=== PATIENT | female | born 1990 | race Caucasian/White ===

== ENCOUNTER 2017-03-17 18:15 | Emergency (ER) | payer MEDICARE, OTHER ==
--- NOTE | 2017-03-17 18:42 | ER Document Report ---
ED Medical Screen (RME) - General Chief Complaint: Abdominal Pain Stated Complaint: ABDOMINAL PAIN Time Seen by Provider: 03/17/17 18:38 Mode of Arrival: Wheelchair Information source: Patient, Relative Notes: 26-year-old female presents with complaints of pelvic pain. Patient has had multiple visits for similar episodes in the past. Patient was diagnosed with ovarian cysts by Shraddha Puckett. Patient has had a "syncopal episode" while in [place], was immediately awoken with sternal rub and is stable I have greeted and performed a rapid initial assessment of this patient. A comprehensive ED assessment and evaluation of the patient, analysis of test results and completion of the medical decision making process will be conducted by additional ED providers. PHYSICAL EXAMINATION: GENERAL: Tearful HEAD: Atraumatic, normocephalic. EYES: Pupils equal round extraocular movements intact, conjunctiva are normal. ENT: Nares patent NECK: Normal range of motion LUNGS: No respiratory distress Musculoskeletal: Normal range of motion NEUROLOGICAL: Normal speech, normal gait. PSYCH: Anxious SKIN: Multiple old cuts on bilateral forearms TRAVEL OUTSIDE OF THE [place] IN LAST 30 DAYS: No - Related Data Allergies/Adverse Reactions: hydromorphone [From Dilaudid] Allergy (Verified 03/17/17 18:24) Past Medical History Renal/ Medical History: Denies: Hx Peritoneal Dialysis Physical Exam - Vital signs Vitals: Temp Pulse Resp BP Pulse Ox 98.3 F 83 16 120/68 98 03/17/17 18:22 03/17/17 18:22 03/17/17 18:22 03/17/17 18:22 03/17/17 18:22 Course - Vital Signs Vital signs: Temp Pulse Resp BP Pulse Ox 98.3 F 83 16 120/68 98 03/17/17 18:22 03/17/17 18:22 03/17/17 18:22 03/17/17 18:22 03/17/17 18:22
[2017-03-17] MEDS ORDERED: KETOROLAC TROMETHAMINE INJ/PF 30 MG/1 ML SDV IV ONE (18:45)
[2017-03-17 19:28] LABS: APPEARANCE,URINE SLIGHTLY-CLOUDY; BILIRUBIN,URINE NEGATIVE (NEGATIVE); GLUCOSE, URINE NEGATIVE (NEGATIVE); KETONES,URINE NEGATIVE (NEGATIVE); LEUKOCYTE ESTERASE,URINE NEGATIVE (NEGATIVE); NITRITE,URINE NEGATIVE (NEGATIVE); PROTEIN,URINE 30 mg/dL (NEGATIVE); URINE SPECIFIC GRAVITY 1.028; UROBILINOGEN,URINE NEGATIVE mg/dL (<2.0)
[2017-03-17] MEDS ORDERED: HALOPERIDOL LACTATE INJ 5 MG/1 ML VIAL IV ONE (19:28)
--- NOTE | 2017-03-17 19:52 | ER Document Report ---
ED General - General Chief Complaint: Abdominal Pain Stated Complaint: ABDOMINAL PAIN Time Seen by Provider: 03/17/17 18:38 Mode of Arrival: Wheelchair Notes: Patient is a 26-year-old female with a past medical history of depression, anxiety, self-injurious behavior, recurrent abdominal pain who presents with 1 month of left lower abdominal pain. Describes it as a constant daily stabbing pain to lower abdomen that is severe in nature and has become progressively worse since onset. She was seen at [facility] in the last several days, told she had a left ovarian cyst and was discharged home. Nothing improves or worsens her pain. States that she has had similar episodes in the past but not to this degree of severity. Does admit to frequent abdominal pain. She has not had any associated vaginal bleeding, vaginal discharge, diarrhea or vomiting. TRAVEL OUTSIDE OF THE [place] IN LAST 30 DAYS: No - Related Data Allergies/Adverse Reactions: hydromorphone [From Dilaudid] Allergy (Verified 03/17/17 18:24) Past Medical History - General Information source: Patient, Relative - Social History Smoking Status: Former Smoker Frequency of alcohol use: Occasional Drug Abuse: None Lives with: Spouse/Significant other Family History: Reviewed & Not Pertinent Renal/ Medical History: Denies: Hx Peritoneal Dialysis Psychiatric Medical History: Reports: Hx Depression Review of Systems - Review of Systems Notes: Constitutional: Negative for fever. HENT: Negative for sore throat. Eyes: Negative for visual changes. Cardiovascular: Negative for chest pain. Respiratory: Negative for shortness of breath. Gastrointestinal: Positive for abdominal pain Genitourinary: Negative for dysuria. Musculoskeletal: Negative for back pain. Skin: Negative for rash. Neurological: Negative for headaches, weakness or numbness. 10 point ROS negative except as marked above and in HPI. Physical Exam - Vital signs Vitals: Temp Pulse Resp BP Pulse Ox 98.3 F 83 16 120/68 98 03/17/17 18:22 03/17/17 18:22 03/17/17 18:22 03/17/17 18:22 03/17/17 18:22 Interpretation: Normal Notes: PHYSICAL EXAMINATION: GENERAL: Appears to be uncomfortable, tearful, highly anxious HEAD: Atraumatic, normocephalic. EYES: Pupils equal round and reactive to light, extraocular movements intact, sclera anicteric, conjunctiva are normal. ENT: nares patent, oropharynx clear without exudates. Moist mucous membranes. NECK: Normal range of motion, supple without lymphadenopathy LUNGS: Breath sounds clear to auscultation bilaterally and equal. No wheezes rales or rhonchi. HEART: Regular rate and rhythm without murmurs ABDOMEN: Soft, nontender on palpation of the abdomen during conversation, normoactive bowel sounds. No guarding, no rebound. No masses appreciated. EXTREMITIES: Normal range of motion, no pitting or edema. No cyanosis. NEUROLOGICAL: No focal neurological deficits. Moves all extremities spontaneously and on command. PSYCH: Tearful and anxious SKIN: Warm, Dry, normal turgor, no rashes or lesions noted. Course - Re-evaluation Re-evalutation: 03/17/17 19:33 Patient presents with 1 month of left adnexal tenderness, diagnosed with an ovarian cyst at [facility] earlier today who presents requesting that her left ovary be removed. Patient is hyperventilating, extremely anxious on assessment, stuttering speech due to crying. She has self-inflicted cutting wounds on her left forearm that are well-healed. Admits to an extensive history of depression and anxiety as well as frequent abdominal pain. Patient actually has no focal tenderness whatsoever when I am examining her abdomen while talking to her. No rebound or guarding. Her heart rate and blood pressure are within normal limits. Given the duration of her symptoms I have very low clinical suspicion for acute ovarian torsion, tubo-ovarian abscess, and her history and examination are not consistent with an acute appendicitis, pyelonephritis, nephrolithiasis acute pancreatitis or biliary pathology. Will obtain basic laboratories, transvaginal ultrasound, provide IV Toradol and a small dose of IV haloperidol and reassess 03/17/17 21:07 Transvaginal ultrasound does not demonstrate any evidence of a large ovarian mass on either side, no evidence of torsion. At this time will discharge with return precautions and follow-up recommendations. Verbal discharge instructions given a the bedside and opportunity for questions given. Medication warnings reviewed. Patient is in agreement with this plan and has verbalized understanding of return precautions and the need for primary care follow-up in the next 24-72 hours. - Vital Signs Vital signs: Temp Pulse Resp BP Pulse Ox 98.3 F 83 18 110/80 100 03/17/17 18:22 03/17/17 18:22 03/17/17 20:01 03/17/17 20:01 03/17/17 20:01 - Laboratory Result Diagrams: 03/17/17 19:40 03/17/17 19:40 Laboratory results interpreted by me: 03/17/17 03/17/17 19:00 19:40 Chloride 108 H AST 56 H ALT 72 H Urine Protein 30 H - Diagnostic Test Radiology reviewed: Reports reviewed Discharge - Discharge Clinical Impression: Left lower quadrant abdominal pain of unknown etiology Condition: Stable Disposition: HOME, SELF-CARE Additional Instructions: You have been seen in the Emergency Department (ED) for abdominal pain. Your evaluation did not identify a clear cause of your symptoms but was generally reassuring. Please follow up with your doctor as soon as possible regarding today's emergent visit and the symptoms that are bothering you. Return to the ED if your abdominal pain worsens or fails to improve, you develop bloody vomiting, bloody diarrhea, you are unable to tolerate fluids due to vomiting, fever greater than 101, or other symptoms that concern you.
[2017-03-17 20:01] LABS: ABSOLUTE BASOPHILS # (AUTO) 0.1 10^3/uL (0.0-0.2); ABSOLUTE EOSINOPHILS # (AUTO) 0.3 10^3/uL (0.0-0.6); ABSOLUTE LYMPHOCYTES (AUTO) 2.8 10^3/uL (0.5-4.7); ABSOLUTE MONOCYTES (AUTO) 0.7 10^3/uL (0.1-1.4); ABSOLUTE NEUT (AUTO) 4.7 10^3/uL (1.7-8.2); BASOPHILS % (AUTO) 0.7 % (0-2); EOSINOPHILS % (AUTO) 3.6 % (0-6); HEMATOCRIT 41.2 % (36.0-47.0); HEMOGLOBIN 13.9 g/dL (12.0-15.5); HGB HCT DIFFERENCE 0.5; LYMPHOCYTES % (AUTO) 32.9 % (13-45); MEAN CORPUSCULAR HEMOGLOBIN 28.6 pg (27.0-33.4); MEAN CORPUSCULAR HGB CONC 33.8 g/dL (32.0-36.0); MEAN CORPUSCULAR VOLUME 85 fl (80-97); MONOCYTES % (AUTO) 8.2 % (3-13); RED BLOOD COUNT 4.87 10^6/uL (3.72-5.28); SEGMENTED NEUTROPHILS % (AUTO) 54.6 % (42-78); WHITE BLOOD COUNT 8.6 10^3/uL (4.0-10.5)
[2017-03-17 20:22] LABS: ALANINE AMINOTRANSFERASE 72 U/L (9-52); ALBUMIN 4.4 g/dL (3.5-5.0); ALKALINE PHOSPHATASE 123 U/L (38-126); ANION GAP 12 (5-19); ASPARTATE AMINO TRANSFERASE 56 U/L (14-36); BILIRUBIN,DIRECT 0.3 mg/dL (0.0-0.4); BILIRUBIN,TOTAL 0.6 mg/dL (0.2-1.3); BLOOD UREA NITROGEN 11 mg/dL (7-20); CALCIUM 9.1 mg/dL (8.4-10.2); CARBON DIOXIDE 22 mmol/L (22-30); CHLORIDE 108 mmol/L (98-107); CREATININE RESULT 0.74 mg/dL (0.52-1.25); GLUCOSE 92 mg/dL (75-110); SODIUM 141.5 mmol/L (137-145); TOTAL PROTEIN 7.8 g/dL (6.3-8.2)
--- NOTE | 2017-03-17 20:59 | RADIOLOGY REPORT (SQ) ---
EXAM DESCRIPTION: U/S NON OB PEL TV W/DOPPLER COMPLETED DATE/TIME: 03/17/2017 8:42 pm REASON FOR STUDY: pelvic pain hx of cysts COMPARISON: None. TECHNIQUE: Dynamic and static grayscale images acquired of the pelvis via transvaginal approach and recorded on PACS. Additional selected color Doppler and spectral images recorded. LIMITATIONS: None. FINDINGS: UTERUS: Contour normal. No mass. ENDOMETRIAL STRIPE: No focal or generalized thickening. No masses. CERVIX: No nabothian cysts. RIGHT OVARY: No abnormal masses. RIGHT OVARY DOPPLER: Normal arterial vascular flow without evidence for torsion. LEFT OVARY: No abnormal masses. LEFT OVARY DOPPLER: Normal arterial vascular flow without evidence for torsion. FREE FLUID: None noted. OTHER: No other significant finding. MEASUREMENTS: UTERUS: 8.7 x 4.8 x 3.6 cm ENDOMETRIAL STRIPE: 1.2 mm RIGHT OVARY: 2.8 x 3.0 x 2.0 cm LEFT OVARY: 3.2 x 2.5 x 1.6 cm IMPRESSION: Age-appropriate exam. TECHNICAL DOCUMENTATION: JOB ID: [id number] [employer]- All Rights Reserved
[2017-03-17] MEDS ORDERED: LIDOCAINE 5% (700 MG) TRANSDERMAL ADH..PATCH TP ONE (21:09)
[2017-03-17 21:29] VITALS: BP 110/80
== END 2017-03-17 21:50 | disposition home or self-care (01) ==
LOC: ER 18:15
DX: R10.32 Left lower quadrant pain (principal); F41.9 Anxiety disorder, unspecified; Z88.5 Allergy status to narcotic agent; Z87.891 Personal history of nicotine dependence; Z91.5 Personal history of self-harm
CPT/HCPCS: 99284; 96374; 96375; 36415; 85025; 81025; 80053; 81001; 76830; 93976; J1630; J1885